=== PATIENT | female | born 1950 | race Caucasian/White ===

== ENCOUNTER 2020-01-23 10:34 | Outpatient (CLI) | payer OTHER | END 2020-01-23 14:07 | disposition home or self-care (01) | LOC: NUCLEAR 10:34 | PROVIDERS: ATTEND Internal Medicine Cardiovascular Disease | DX: I20.8 Other forms of angina pectoris (principal); I10 Essential (primary) hypertension; R07.89 Other chest pain | CPT/HCPCS: 78452; 93017; A9500; J0153 ==

== ENCOUNTER 2021-03-04 09:29 | Emergency (ER) | payer OTHER ==
[~2021-03-04] VITALS: Ht 165.1 cm; Wt 90.7 kg
[2021-03-04] MEDS ORDERED: METFORMIN HCL1000 M2 (09:42)
[2021-03-04] MEDS ORDERED: LEVOTHYROXINE25 MCG (09:42)
[2021-03-04] MEDS ORDERED: ATORVASTATIN CA10 MG (09:43)
[2021-03-04] MEDS ORDERED: HYDROCHLOROTHIA25 MG (09:43)
[2021-03-04] MEDS ORDERED: LOSARTAN POTASSI1 GM (09:43)
== END 2021-03-04 13:04 | disposition home or self-care (01) ==
LOC: ER 09:29
DX: S81.022A Laceration with foreign body, left knee, initial encounter (principal); S91.322A Laceration with foreign body, left foot, initial encounter; S00.83XA Contusion of other part of head, initial encounter; W18.09XA Striking against other object with subsequent fall, initial encounter; Y93.89 Activity, other specified; Y92.512 Supermarket, store or market as the place of occurrence of the external cause; Y99.8 Other external cause status

== ENCOUNTER 2021-03-22 11:43 | Emergency (ER) | payer OTHER ==
[~2021-03-22] VITALS: Ht 165.1 cm; Wt 90.7 kg
[~2021-03-22 11:43] MED LIST: ATORVASTATIN CA10 MG; HYDROCHLOROTHIA25 MG; LEVOTHYROXINE25 MCG; LOSARTAN POTASSI1 GM; METFORMIN HCL1000 M2
== END 2021-03-22 15:57 | disposition home or self-care (01) ==
LOC: ER 11:43
DX: L53.8 Other specified erythematous conditions (principal); S80.811S Abrasion, right lower leg, sequela; W18.09XS Striking against other object with subsequent fall, sequela